=== PATIENT | male | born 1960 | race Caucasian/White ===

== ENCOUNTER 2020-09-05 05:35 | Day surgery (SDC) | payer BC ==
[2020-08-29 15:16] LABS: BASOPHILS # (AUTO) 0.1 X10'3 (0-0.2); BASOPHILS % (AUTO) 0.9 % (0-1); EOSINOPHILS # (AUTO) 0.2 X10'3 (0-0.9); EOSINOPHILS % (AUTO) 3.3 % (0-6); LYMPHOCYTES # (AUTO) 1.3 X10'3 (1.1-4.8); MEAN CORPUSCULAR HEMOGLOBIN 32.2 PG (27.0-31.0); MEAN CORPUSCULAR HGB CONC 34.7 g/dL (33.0-36.5); MEAN CORPUSCULAR VOLUME 92.8 FL (78-98); MONOCYTES # (AUTO) 0.6 X10'3 (0-0.9); MONOCYTES % (AUTO) 8.9 % (2-12); NEUTROPHILS # (AUTO) 4.7 X10'3 (1.8-7.7); NEUTROPHILS % (AUTO) 67.9 % (42-75); PRE OP HEMATOCRIT 38.6 % (42.0-52.0); PRE OP HEMOGLOBIN 13.4 g/dL (14.0-17.9); PRE OP PLATELET COUNT 204 X10'3 (140-440); RED BLOOD COUNT 4.16 X10'6 (4.70-6.10); RED CELL DISTRIBUTION WIDTH 13.2 % (11.5-14.5)
[2020-08-29 15:31] LABS: ALBUMIN 4.3 G/DL (3.4-5.0); ALBUMIN/GLOBULIN RATIO 1.1 (1.1-1.5); ALKALINE PHOSPHATASE 52 IU/L (46-116); BLOOD UREA NITROGEN 11 MG/DL (7-18); BUN/CREATININE RATIO 11.3 (5.4-32.0); CALCIUM 9.2 MG/DL (8.5-10.1); CHLORIDE 97 MMOL/L (99-107); CREATININE 0.97 MG/DL (0.60-1.10); PRE OP ALT 27 U/L (30-65); PRE OP ANION GAP 12 (8-16); PRE OP AST 23 U/L (10-37); PRE OP BILIRUB, TOTAL 0.7 MG/DL (0.0-1.0); PRE OP GLUCOSE 90 MG/DL (70-104); PRE OP POTASSIUM 3.8 MMOL/L (3.4-5.1); PRE OP SODIUM 135 MMOL/L (135-145); TOTAL CARBON DIOXIDE 26.2 MMOL/L (24-32); TOTAL PROTEIN 8.1 G/DL (6.4-8.2); eGFR 79 ML/MIN
[2020-09-04 05:40] VITALS: BP 124/83
[~2020-09-05] VITALS: Ht 172.7 cm; Wt 99.8 kg
[~2020-09-05 05:35] MED LIST: ASPI-611 PO; DOCUMENT DATE & TIME OF BETA-BLOCKER PO ONE; METO-539 PO; ceFAZolin 2gm in dextrose, iso 50 ML IV ONE; famotidine 20mg tablet PO ONE; ringers solution, lacted 1,000 ML IV SCH
[2020-09-05] MEDS ORDERED: BUPIVAcaine/PF 2.5mg/ml (0.25%) 10ml vial ONE (07:13)
[2020-09-05] MEDS ORDERED: fentaNYL/PF 50MCG/1 ML 2ML syringe ONE (07:18)
[2020-09-05] MEDS ORDERED: MIDAZolam 1 MG/ML 5ML VIAL ONE (07:18)
[2020-09-05] MEDS ORDERED: LIDOcaine 0.5% (5mg/ml) 50ml vial ONE (07:18)
[2020-09-05] MEDS ORDERED: ringers solution, lacted 1,000 ML IV SCH (07:25)
[2020-09-05] MEDS ORDERED: ondansetron/PF 4mg/2ml inj IV PRN (07:25)
[2020-09-05] MEDS ORDERED: meperidine/PF 25mg/ml syringe IV PRN ×3 (07:25)
[2020-09-05] MEDS ORDERED: proCHLORperazine 10 MG/2 ml inj IV PRN (07:25)
[2020-09-05] MEDS ORDERED: morphine 4 MG/ML inj SYRINge IV PRN (07:25)
[2020-09-05] MEDS ORDERED: morphine 2 MG/ML inj. syringe IV PRN (07:25)
[2020-09-05] MEDS ORDERED: propofol inj 20 ML IV ONE (07:58)
[2020-09-05 08:28] VITALS: BP 117/70
--- NOTE | 2020-09-05 08:28 | NUR ---
Received from OR via , accompanied by Anesthesiologist FR JOHNSON and report given by Anesthesiolgist. AWAKE AND BHARATI PAIN. VITALS STABLE. DRESSING DI. FINGERS WARM AND PINK.
[2020-09-05 08:38] VITALS: BP 115/72
[2020-09-05 08:48] VITALS: BP 121/73
[2020-09-05 08:58] VITALS: BP 118/70
--- NOTE | 2020-09-05 09:18 | NUR ---
AWAKE AND ORIENTED. VITALS STABLE. DRESSING DI. SENISE PAIN. HOME WITH HIS AT THIS TIME.
== END 2020-09-05 09:18 | disposition home or self-care (01) ==
LOC: PAS 05:35
PROVIDERS: ATTEND Orthopaedic Surgery Hand Surgery
DX: M72.0 Palmar fascial fibromatosis [Dupuytren] (principal); G56.02 Carpal tunnel syndrome, left upper limb; Z20.822 Contact with and (suspected) exposure to COVID-19; G47.30 Sleep apnea, unspecified; I48.91 Unspecified atrial fibrillation; Z91.013 Allergy to seafood; Z79.82 Long term (current) use of aspirin; Z79.899 Other long term (current) drug therapy; Z98.890 Other specified postprocedural states; Z72.89 Other problems related to lifestyle; Z87.891 Personal history of nicotine dependence
CPT/HCPCS: 26123; 26125; 36415; 64721; 80053; 82948; 85025; 93005; J2001; J2250; J2704; J3010; J3490; U0003; A4215; J7120

== ENCOUNTER 2023-07-05 11:42 | Day surgery (SDC) | payer BC ==
[2023-07-03 10:13] LABS: BASOPHILS # (AUTO) 0.1 X10'3 (0-0.2); BASOPHILS % (AUTO) 1.1 % (0-1); EOSINOPHILS # (AUTO) 0.7 X10'3 (0-0.9); EOSINOPHILS % (AUTO) 14.1 % (0-6); HEMATOCRIT 32.6 % (42.0-52.0); HEMOGLOBIN 11.1 g/dl (14.0-17.9); LYMPHOCYTES # (AUTO) 0.9 X10'3 (1.1-4.8); LYMPHOCYTES % (AUTO) 19.2 % (21-51); MEAN CORPUSCULAR HGB CONC 33.9 g/dL (33.0-36.5); MEAN CORPUSCULAR VOLUME 97.2 FL (78-98); MEAN PLATELET VOLUME 8.4 FL (7.4-10.4); MONOCYTES # (AUTO) 0.4 X10'3 (0-0.9); MONOCYTES % (AUTO) 7.9 % (2-12); NEUTROPHILS # (AUTO) 2.8 X10'3 (1.8-7.7); NEUTROPHILS % (AUTO) 57.7 % (42-75); PLATELET COUNT 153 X10'3 (140-440); RED BLOOD COUNT 3.35 X10'6 (4.70-6.10); RED CELL DISTRIBUTION WIDTH 13.1 % (11.5-14.5); WHITE BLOOD COUNT 4.9 X10'3 (4.5-11.0)
[2023-07-03 10:25] LABS: APTT 32 SECONDS (22-32); INR 1.1 INR; PROTHROMBIN TIME 11.5 SECONDS (9.0-12.0)
[2023-07-03 10:28] LABS: ALANINE AMINOTRANSFERASE 36 U/L (12-78); ALBUMIN 3.9 G/DL (3.4-5.0); ALBUMIN/GLOBULIN RATIO 1.3 (1.1-1.5); ALKALINE PHOSPHATASE 44 IU/L (46-116); ANION GAP 9 (8-16); ASPARTATE AMINO TRANSFERASE 38 U/L (10-37); BILIRUBIN,TOTAL 0.8 MG/DL (0.1-1.0); BLOOD UREA NITROGEN 12 MG/DL (7-18); BUN/CREATININE RATIO 13.6 (10.0-20.0); CALCIUM 9.1 MG/DL (8.5-10.1); CHLORIDE 104 MMOL/L (99-107); CHOL/HDL RATIO 2.9 (0.00-4.99); CHOLESTEROL 143 MG/DL (0-200); CREATININE 0.88 MG/DL (0.60-1.10); GLUCOSE 89 MG/DL (70-104); HDL CHOLESTEROL 49 MG/DL (35-60); LDL CHOLESTEROL 74 MG/DL (50-100); POTASSIUM 4.1 MMOL/L (3.5-5.1); SODIUM 140 MMOL/L (135-145); TOTAL CARBON DIOXIDE 26.8 MMOL/L (24-32); TRIGLYCERIDES 92 MG/DL (20-135); eGFR 87 ML/MIN
[2023-07-05] VITALS (9 sets, daily range): BP systolic 126–153; BP diastolic 74–84; PULSE 62–66; RESP 8–18; TEMP 97.5; O2SAT 94–100
[~2023-07-05] VITALS: Ht 172.7 cm; Wt 90.4 kg
[~2023-07-05 11:42] MED LIST changes: -DOCUMENT DATE & TIME OF BETA-BLOCKER PO ONE; -ceFAZolin 2gm in dextrose, iso 50 ML IV ONE; -famotidine 20mg tablet PO ONE; -ringers solution, lacted 1,000 ML IV SCH
[2023-07-05] MEDS ORDERED: SOTA80TA PO (12:18)
[2023-07-05] MEDS ORDERED: ROSU20TA73 PO (12:18)
[2023-07-05] MEDS ORDERED: CYAN50009 SL (12:18)
[2023-07-05] MEDS ORDERED: FERR-28 PO (12:18)
[2023-07-05] MEDS ORDERED: FURO20TA4 PO (12:18)
[2023-07-05] MEDS ORDERED: APIX5TAB3 PO (12:18)
[2023-07-05] MEDS ORDERED: POTA-188 PO (12:18)
[2023-07-05] MEDS: diphenhydrAMINE 25mg capsule PO PRN (12:37)
[2023-07-05] MEDS: LORazepam 0.5 MG tablet PO PRN (12:37)
[2023-07-05] MEDS: normal saline 1,000 ML IV SCH (12:38)
[2023-07-05] MEDS ORDERED: IMAT400T5 PO (12:59)
[2023-07-05] MEDS ORDERED: iohexol 350MG/ML 100ml bottle IV ONE (14:49)
[2023-07-05] MEDS ORDERED: fentaNYL/PF 50MCG/1 ML 2ML syringe ONE (14:49)
[2023-07-05] MEDS ORDERED: midazolam 1 mg/ML 2ml injection ONE (14:49)
[2023-07-05] MEDS ORDERED: heparin 1,000unit/ml 10ml vial 10 ML ONE (14:49)
[2023-07-05] MEDS ORDERED: verapamil 2.5 mg/ml inj IV ONE (14:49)
[2023-07-05] MEDS ORDERED: LIDOcaine 1% (10mg/ml) 2ml vial ONE (14:49)
[2023-07-05] MEDS ORDERED: nitroGLYCERIN 500mcg/5mL D5W 5 ML IV ONE (14:50)
[2023-07-05] MEDS ORDERED: iohexol 350 MG/ML 50ML vial IV ONE (15:22)
[2023-07-05] MEDS ORDERED: LIDOcaine 1% 30ml preserv. free vial ONE (15:34)
[2023-07-05] MEDS ORDERED: proCHLORperazine 10 MG/2 ml inj IV PRN (16:25)
[2023-07-05] MEDS ORDERED: ondansetron/PF 4mg/2ml inj IV PRN (16:25)
[2023-07-05] MEDS ORDERED: nitroGLYCERIN 0.4mg SUBLingual tab SL PRN (16:25)
[2023-07-08 06:45] LABS: ISTAT HGB MIX 9.9 g/dl (14.0-17.9); ISTAT Hct MIX 29 %PCV (42-52); ISTAT O2 SATURATION MIX VENOUS 67 % (60-80); ISTAT SOURCE VEN
[2023-08-12] MEDS ORDERED: FLO0.4C PO (13:15)
[2023-08-12] MEDS ORDERED: APIX5TAB3 PO (13:41)
[2023-08-13] MEDS ORDERED: FERR325T28 PO (13:11)
[2023-08-13] MEDS ORDERED: CYAN500T46 PO (13:11)
== END 2023-07-05 19:30 | disposition home or self-care (01) ==
LOC: SSTAY O 11:42
PROVIDERS: ATTEND Student in an Organized Health Care Education/Training Program
DX: I34.0 Nonrheumatic mitral (valve) insufficiency (principal); I42.8 Other cardiomyopathies; I48.91 Unspecified atrial fibrillation; E78.5 Hyperlipidemia, unspecified; K21.9 Gastro-esophageal reflux disease without esophagitis; G47.30 Sleep apnea, unspecified; Z79.01 Long term (current) use of anticoagulants; Z79.899 Other long term (current) drug therapy
CPT/HCPCS: 36415; 80053; 80061; 82803; 85014; 85025; 85610; 85730; 93005; 93458; 99152; 99153; J1644; J2250; J3010; J3490; J7030; Q0163; Q9967; A6258; A6402; C1751; C1760; C1769; C1894

== ENCOUNTER 2023-08-14 05:49 | Inpatient (IN) | payer BC ==
[2023-08-12 14:01] LABS: BILIRUBIN,URINE NEGATIVE (Neg); CLARITY,URINE CLEAR (Clear); COLOR,URINE YELLOW (Yellow); GLUCOSE, URINE NEGATIVE (Neg); KETONES,URINE NEGATIVE (Neg); LEUKOCYTE ESTERASE ,URINE NEGATIVE (Neg); NITRITES, URINE NEGATIVE (Neg); OCCULT BLOOD,URINE NEGATIVE (Neg); PROTEIN,URINE NEGATIVE (Neg)
[2023-08-12 14:32] LABS: UA COLLECTION TYPE CLN CATCH MIDSTREAM
[2023-08-12 14:48] LABS: ALBUMIN 4.1 G/DL (3.4-5.0); ALBUMIN/GLOBULIN RATIO 1.4 (1.1-1.5); ALKALINE PHOSPHATASE 40 IU/L (46-116); BLOOD UREA NITROGEN 10 MG/DL (7-18); BUN/CREATININE RATIO 11.5 (10.0-20.0); CALCIUM 8.5 MG/DL (8.5-10.1); CHLORIDE 105 MMOL/L (99-107); CREATININE 0.87 MG/DL (0.60-1.10); PRE OP ALT 27 U/L (30-65); PRE OP ANION GAP 12 (8-16); PRE OP AST 24 U/L (10-37); PRE OP BILIRUB, TOTAL 0.8 MG/DL (0.0-1.0); PRE OP GLUCOSE 98 MG/DL (70-104); PRE OP POTASSIUM 4.3 MMOL/L (3.4-5.1); PRE OP SODIUM 142 MMOL/L (135-145); TOTAL CARBON DIOXIDE 24.6 MMOL/L (24-32); TOTAL PROTEIN 7.1 G/DL (6.4-8.2); eCRCL 78 ML/MIN; eGFR 89 ML/MIN
[2023-08-12 15:07] LABS: HEMOGLOBIN A1C 5.5 % (4.5-6.2)
[2023-08-13 07:22] LABS: ABG BASE EXCESS -1.8 mmol/L (-2.0-2.0); ABG HCO3 21.1 mmol/L (22.0-26.0); ABG OXYGEN SATURATION 97.6 % (94-97); ABG PH (T) 7.465 (7.340-7.440); ABG PO2 (T) 106.1 mmHg (75.0-100.0); ALLEN'S TEST POSITIVE; FCOHb 0.3 % (0.0-3.9); FHHb 2.4 % (0.0-5.0); FMetHb 0.1 % (0.0-1.5); FO2Hb 97.2 % (94-97); MODE ROOM AIR; TOTAL HEMOGLOBIN 11.8 G/dl (14.0-17.9)
[2023-08-13 07:56] LABS: BASOPHILS # (AUTO) 0.1 X10'3 (0-0.2); BASOPHILS % (AUTO) 1.1 % (0-1); EOSINOPHILS # (AUTO) 0.5 X10'3 (0-0.9); EOSINOPHILS % (AUTO) 10.3 % (0-6); LYMPHOCYTES % (AUTO) 19.9 % (21-51); MEAN CORPUSCULAR HEMOGLOBIN 33.1 PG (27.0-31.0); MEAN CORPUSCULAR HGB CONC 34.9 g/dL (33.0-36.5); MEAN CORPUSCULAR VOLUME 94.8 FL (78-98); MEAN PLATELET VOLUME 9.4 FL (7.4-10.4); MONOCYTES # (AUTO) 0.3 X10'3 (0-0.9); MONOCYTES % (AUTO) 6.5 % (2-12); NEUTROPHILS % (AUTO) 62.2 % (42-75); PRE OP HEMOGLOBIN 11.2 g/dL (14.0-17.9); PRE OP PLATELET COUNT 142 X10'3 (140-440); PRE OP WHITE BLOOD COUNT 4.8 10'3 (4.8-10.8); RED BLOOD COUNT 3.38 X10'6 (4.70-6.10); RED CELL DISTRIBUTION WIDTH 13.6 % (11.5-14.5)
[~2023-08-14] VITALS: Ht 167.6 cm; Wt 99.4 kg
[2023-08-14] VITALS (26 sets, daily range): BP systolic 90–148; BP diastolic 46–92; PULSE 76–121; RESP 10–22; TEMP 98.5; O2SAT 96–100
[2023-08-14] MEDS: LORazepam 2 mg/ml vial IV ONE (05:30)
[2023-08-14] MEDS: Insulin Reg/NS 100units/100mL 100 ML IV SCH ×2 (05:30→12:25)
[2023-08-14] MEDS: cefazolin 2gm/D5W 100mL 100 ML IV ONE (05:30)
[2023-08-14] MEDS: DOCUMENT DATE & TIME OF BETA-BLOCKER PO ONE (05:30)
[~2023-08-14 05:49] MED LIST changes: +APIX5TAB3 PO; -ASPI-611 PO; +CYAN500T46 PO; +FERR325T28 PO; +FLO0.4C PO; +FURO20TA4 PO; +IMAT400T5 PO; -METO-539 PO; +POTA-188 PO; +ROSU20TA73 PO; +SOTA80TA PO; +albuterol 2.5 MG/3 ML nebule NEB PRN; +dextrose 50%-water 50ml dispensing syringe IV PRN
[2023-08-14] MEDS: famotidine 20mg tablet PO ONE (06:35)
[2023-08-14] MEDS: ringers solution, lacted 1,000 ML IV SCH (06:35)
[2023-08-14] MEDS: vancomycin 1,500 MG in NS 300ml IV soln IV ONE (06:39)
[2023-08-14] MEDS: metoprolol tartrate 12.5mg (1/2 tablet) PO ONE (06:46)
[2023-08-14] MEDS: mupirocin 2% nasal ointment 1gm UD NS ONE (06:46)
[2023-08-14 07:45] LABS: PRE OP INR 1.1 INR; PRE OP PROTIME 11.5 SECONDS (9.0-12.0)
[2023-08-14] MEDS ORDERED: MIDAZolam 1mg/ml 10ml vial ONE (07:45)
[2023-08-14] MEDS ORDERED: SUfentanil 50mcg/ml 1ml amp IV ONE (07:48)
[2023-08-14] MEDS ORDERED: LIDOcaine 2% (20 mg/ml) 5ml cardiac syringe ONE (08:00)
[2023-08-14] MEDS ORDERED: mannitol 12.5gm/50mL VIAL IV ONE (08:00)
[2023-08-14] MEDS ORDERED: sodium bicarbonate (8.4%) 1 mEq/ml syringe ONE (08:00)
[2023-08-14] MEDS ORDERED: heparin 10,000 units/1 ML INJ ONE (08:00)
[2023-08-14] MEDS ORDERED: NORepinephrine 1 mg/ml inj IV ONE (08:00)
[2023-08-14] MEDS ORDERED: potassium Cl 2 mEq/ml inj IV ONE (08:00)
[2023-08-14] MEDS ORDERED: calcium chloride 100 MG/1 ML inj IV ONE (08:00)
[2023-08-14] MEDS ORDERED: furosemide 40mg/4ml inj ONE (08:00)
[2023-08-14] MEDS ORDERED: aminocaproic acid 250 MG/1 ML inj. ONE ×2 (08:00→08:14)
[2023-08-14] MEDS ORDERED: heparin 1,000 units/ml 10ml inj ONE (08:00)
[2023-08-14] MEDS ORDERED: MAGNESIUM SULFATE 4 MEQ/ML (5gm/10ml) injection ONE (08:00)
[2023-08-14] MEDS ORDERED: albumin (human) 25% 100 ML IV solution IV ONE (08:00)
[2023-08-14] MEDS ORDERED: protamine sulf. 10mg/ml inj. IV ONE (08:14)
[2023-08-14] MEDS ORDERED: isoflurane 100ml inhalation liquid IH ONE (08:14)
[2023-08-14] MEDS ORDERED: albumin (Human) 5% 250ml BOTTLE IV ONE (08:14)
[2023-08-14] MEDS ORDERED: DOBUTamine/D5W 500mg/250ml premix IV ONE (08:14)
[2023-08-14] MEDS ORDERED: NORepinephrine 8 MG in NS 250 ML BAG (32 mcg/ml) IV ONE (08:14)
[2023-08-14] MEDS ORDERED: midazolam 100mg in NS 100ml 100 ML IV PRN (08:20)
[2023-08-14] MEDS: midazolam 1 mg/ML 2ml injection IV ONE (08:20)
[2023-08-14] MEDS ORDERED: fentaNYL/PF 50MCG/1 ML 2ML syringe IV PRN (08:20)
[2023-08-14] MEDS ORDERED: FENTANYL-0.9 % NACL/PF 100 ML IV PRN (08:20)
[2023-08-14 09:09] LABS: ABG BASE EXCESS -1.4 mmol/L (-2.0-2.0); ABG HCO3 22.6 mmol/L (22.0-26.0); ABG OXYGEN SATURATION 99.2 % (94-97); ABG PCO2 35.2 mmHg (35.0-48.0); ABG PH 7.426 (7.340-7.440); ABG PO2 464.1 mmHg (75.0-100.0); CL (ABG) 107 mmol/L (99-107); FCOHb 0.3 % (0.0-3.9); FHHb 0.8 % (0.0-5.0); FMetHb 0.3 % (0.0-1.5); FO2Hb 98.6 % (94-97); GLUCOSE (ABG) 115 mg/dl (70-104); IONIZED CA (ABG) 1.11 mmol/L (1.10-1.30); K (ABG) 3.4 mmol/L (3.5-5.1); TOTAL HEMOGLOBIN 10.3 G/dl (14.0-17.9)
[2023-08-14 09:30] LABS: ABG BASE EXCESS 0.5 mmol/L (-2.0-2.0); ABG HCO3 24.3 mmol/L (22.0-26.0); ABG OXYGEN SATURATION 99.4 % (94-97); ABG PCO2 35.5 mmHg (35.0-48.0); ABG PH 7.453 (7.340-7.440); ABG PO2 489.3 mmHg (75.0-100.0); CL (ABG) 102 mmol/L (99-107); FCOHb 0.3 % (0.0-3.9); FHHb 0.6 % (0.0-5.0); FMetHb 0.3 % (0.0-1.5); FO2Hb 98.8 % (94-97); GLUCOSE (ABG) 107 mg/dl (70-104); IONIZED CA (ABG) 1.03 mmol/L (1.10-1.30); K (ABG) 3.6 mmol/L (3.5-5.1); TOTAL HEMOGLOBIN 8.4 G/dl (14.0-17.9)
[2023-08-14] MEDS ORDERED: 0.9 % SODIUM CHLORIDE 10 ML VIAL ONE (09:39)
[2023-08-14] MEDS ORDERED: etomidate 2mg/ml inj. ONE (09:39)
[2023-08-14] MEDS ORDERED: LIDOcaine 2% (20mg/ml) 5ml vial ONE (09:39)
[2023-08-14] MEDS ORDERED: phenylephrine 10mg/ml inj. -priapism dosing ONE (09:39)
[2023-08-14] MEDS ORDERED: rocuronium 10mg/ml inj IV ONE ×3 (09:39→12:23)
[2023-08-14] MEDS ORDERED: propofol inj 20 ML IV ONE (09:39)
[2023-08-14 09:52] LABS: ABG BASE EXCESS VENOUS 0.1 mmol/L (-2.0 - 2.0); ABG HCO3 VENOUS 24.6 mmol/L (21.0-28.0); ABG OXYGEN SATURATION VENOUS 84.9 % (75 - 99 %); ABG PCO2 VENOUS 39.3 mmHg (41.0-54.0); ABG PH (VENOUS) 7.415 (7.310-7.450); ABG PO2 VENOUS 49.2 mmHg (25.0-35.0); CL (ABG) 103 mmol/L (99-107); FCOHb VENOUS 0.3 %; FMetHb VENOUS 0.3 % (0.0 - 0.5); FO2Hb VENOUS 84.4 %; GLUCOSE (ABG) 143 mg/dl (70-104); IONIZED CA (ABG) 1.09 mmol/L (1.10-1.30); K (ABG) 4.5 mmol/L (3.5-5.1); TOTAL HEMOGLOBIN 9.4 G/dl (14.0-17.9)
[2023-08-14 10:14] LABS: ABG BASE EXCESS -0.6 mmol/L (-2.0-2.0); ABG HCO3 25.4 mmol/L (22.0-26.0); ABG OXYGEN SATURATION 99.1 % (94-97); ABG PCO2 48.1 mmHg (35.0-48.0); ABG PO2 236.1 mmHg (75.0-100.0); CL (ABG) 103 mmol/L (99-107); FCOHb 0.3 % (0.0-3.9); FHHb 0.9 % (0.0-5.0); FMetHb 0.3 % (0.0-1.5); FO2Hb 98.5 % (94-97); GLUCOSE (ABG) 167 mg/dl (70-104); IONIZED CA (ABG) 1.13 mmol/L (1.10-1.30); K (ABG) 4.4 mmol/L (3.5-5.1); TOTAL HEMOGLOBIN 9.4 G/dl (14.0-17.9)
[2023-08-14 10:45] LABS: ABG BASE EXCESS -3.3 mmol/L (-2.0-2.0); ABG HCO3 21.6 mmol/L (22.0-26.0); ABG PCO2 37.7 mmHg (35.0-48.0); ABG PH 7.375 (7.340-7.440); ABG PO2 231.1 mmHg (75.0-100.0); CL (ABG) 103 mmol/L (99-107); FCOHb 0.3 % (0.0-3.9); FMetHb 0.3 % (0.0-1.5); FO2Hb 98.4 % (94-97); GLUCOSE (ABG) 154 mg/dl (70-104); IONIZED CA (ABG) 1.13 mmol/L (1.10-1.30); K (ABG) 4.4 mmol/L (3.5-5.1); TOTAL HEMOGLOBIN 9.2 G/dl (14.0-17.9)
[2023-08-14 11:21] LABS: ACTIVATED CLOTTING TIME 710 SEC (101-148)
[2023-08-14 11:21] LABS: ACTIVATED CLOTTING TIME 625 SEC (101-148)
[2023-08-14 11:21] LABS: ACTIVATED CLOTTING TIME 875 SEC (101-148)
[2023-08-14 11:28] LABS: ABG BASE EXCESS -1.7 mmol/L (-2.0-2.0); ABG HCO3 21.9 mmol/L (22.0-26.0); ABG OXYGEN SATURATION 99.4 % (94-97); ABG PCO2 32.2 mmHg (35.0-48.0); ABG PH 7.451 (7.340-7.440); CL (ABG) 105 mmol/L (99-107); FCOHb 0.3 % (0.0-3.9); FHHb 0.6 % (0.0-5.0); FMetHb 0.3 % (0.0-1.5); FO2Hb 98.8 % (94-97); GLUCOSE (ABG) 141 mg/dl (70-104); IONIZED CA (ABG) 1.17 mmol/L (1.10-1.30); TOTAL HEMOGLOBIN 7.9 G/dl (14.0-17.9)
[2023-08-14 11:30] LABS: ACTIVATED CLOTTING TIME 122 SEC (101-148)
[2023-08-14] MEDS ORDERED: esmolol inj. 10 ML IV ONE (12:23)
[2023-08-14] MEDS ORDERED: dexamethasone sod phosphate 4mg/ml inj. ONE (12:23)
[2023-08-14] MEDS ORDERED: ondansetron/PF 4mg/2ml inj ONE (12:23)
[2023-08-14] MEDS ORDERED: acetaminophen 325mg tablet PO PRN (12:25)
[2023-08-14] MEDS ORDERED: bisacodyl 10mg suppository rectal RC PRN (12:25)
[2023-08-14] MEDS ORDERED: Neutra Phos packet PO PRN (12:25)
[2023-08-14] MEDS ORDERED: mineral oil 133ml enema RC PRN (12:25)
[2023-08-14] MEDS ORDERED: nitroGLYCERIN-Tridil 50MG/D5W 250 ML IV PRN (12:25)
[2023-08-14] MEDS ORDERED: magnesium hydroxide 30ml (MOM) UD suspension PO PRN (12:25)
[2023-08-14] MEDS ORDERED: ondansetron/PF 4mg/2ml inj IV PRN (12:25)
[2023-08-14] MEDS ORDERED: insulin glargine (Lantus) pen - multi-dose SQ PRN (12:25)
[2023-08-14] MEDS ORDERED: potassium Cl 40MEQ/1/2NS 520ml 520 ML IV PRN (12:25)
[2023-08-14] MEDS ORDERED: DOBUTamine-DoBUTrex 500mg/D5W 250 ML IV PRN (12:25)
[2023-08-14] MEDS ORDERED: dextrose 50%-water 50ml dispensing syringe IV PRN (12:25)
[2023-08-14] MEDS ORDERED: niCARDipine-NS 40mg/200ml IVPB 200 ML IV PRN (12:25)
[2023-08-14] MEDS ORDERED: normal saline 250ml IV soln 250 ML IV PRN (12:25)
[2023-08-14] MEDS ORDERED: potassium CL 10mEq/100ml bag 100 ML IV PRN (12:25)
[2023-08-14] MEDS: ceFAZolin 1000mg inj ONE (12:39)
[2023-08-14] MEDS: epiNEPHrine 1 mg/ml inj ONE (12:40)
[2023-08-14] MEDS: vancomycin 1,000mg inj ONE (12:40)
[2023-08-14 12:45] LABS: ABG BASE EXCESS -4.2 mmol/L (-2.0-2.0); ABG HCO3 20.3 mmol/L (22.0-26.0); ABG OXYGEN SATURATION 99.5 % (94-97); ABG PCO2 (T) 34.8 mmHg (35.0-48.0); ABG PH (T) 7.384 (7.340-7.440); ABG PO2 (T) 402.2 mmHg (75.0-100.0); FCOHb 0.3 % (0.0-3.9); FHHb 0.5 % (0.0-5.0); FMetHb 0.3 % (0.0-1.5); FO2Hb 98.9 % (94-97); MODE VENT - SIMV; PATIENT TEMPERATURE 36.8; PEEP 5 cm H2O; RESPIRATORY RATE 12 b/min; TIDAL VOLUME 600 mL; TOTAL HEMOGLOBIN 10.8 G/dl (14.0-17.9)
[2023-08-14 12:56] LABS: BASOPHILS % (AUTO) 0.4 % (0-1); EOSINOPHILS # (AUTO) 0.2 X10'3 (0-0.9); EOSINOPHILS % (AUTO) 1.7 % (0-6); HEMATOCRIT 29.5 % (42.0-52.0); HEMOGLOBIN 10.1 g/dl (14.0-17.9); LYMPHOCYTES # (AUTO) 0.7 X10'3 (1.1-4.8); LYMPHOCYTES % (AUTO) 7.4 % (21-51); MEAN CORPUSCULAR HEMOGLOBIN 32.5 PG (27.0-31.0); MEAN CORPUSCULAR HGB CONC 34.2 g/dL (33.0-36.5); MEAN CORPUSCULAR VOLUME 95.1 FL (78-98); MEAN PLATELET VOLUME 7.9 FL (7.4-10.4); MONOCYTES # (AUTO) 0.4 X10'3 (0-0.9); MONOCYTES % (AUTO) 4.2 % (2-12); NEUTROPHILS # (AUTO) 8.6 X10'3 (1.8-7.7); NEUTROPHILS % (AUTO) 86.3 % (42-75); PLATELET COUNT 110 X10'3 (140-440); RED CELL DISTRIBUTION WIDTH 14.1 % (11.5-14.5); WHITE BLOOD COUNT 9.9 X10'3 (4.5-11.0)
[2023-08-14 13:15] LABS: ALANINE AMINOTRANSFERASE 19 U/L (12-78); ALBUMIN 3.4 G/DL (3.4-5.0); ALBUMIN/GLOBULIN RATIO 2.3 (1.1-1.5); ALKALINE PHOSPHATASE 22 IU/L (46-116); BLOOD UREA NITROGEN 10 MG/DL (7-18); BUN/CREATININE RATIO 10.5 (10.0-20.0); CALCIUM 7.5 MG/DL (8.5-10.1); CREATININE 0.95 MG/DL (0.60-1.10); GLUCOSE 121 MG/DL (70-104); MAGNESIUM 2.5 MG/DL (1.5-2.4); SODIUM 145 MMOL/L (135-145); TOTAL CARBON DIOXIDE 22.1 MMOL/L (24-32); TOTAL PROTEIN 4.9 G/DL (6.4-8.2); eCRCL 72 ML/MIN; eGFR 80 ML/MIN
[2023-08-14 13:20] LABS: ANION GAP 11 (8-16); ASPARTATE AMINO TRANSFERASE 53 U/L (10-37); CHLORIDE 112 MMOL/L (99-107); POTASSIUM 3.1 MMOL/L (3.5-5.1)
[2023-08-14 13:26] LABS: PHOSPHORUS 1.2 MG/DL (2.3-4.5)
[2023-08-14] MEDS: albumin (Human) 5% 250ml 250 ML IV ONE (13:26)
[2023-08-14] MEDS: gabapentin 300mg capsule PO SCH (13:26)
[2023-08-14] MEDS: sodium chloride 0.45% 1,000 ML IV SCH (13:27)
[2023-08-14] MEDS: NORepinephrine 8mg/ 250ml NS 250 ML IV PRN (13:37)
[2023-08-14] MEDS: albumin (Human) 5% 250ml 250 ML IV PRN (13:44)
[2023-08-14 13:45] LABS: INR 1.5 INR; PROTHROMBIN TIME 15.6 SECONDS (9.0-12.0)
[2023-08-14 14:00] LABS: PRE OP PARTIAL THROMB. TIME 39 SECONDS (22-32)
[2023-08-14] MEDS: potassium Cl 20mEq/100mL bag 100 ML IV PRN (14:09)
[2023-08-14] MEDS: sodium phosphate inj. 30 MMOL in dextrose 5%-water 250 ML IV PRN (15:05)
[2023-08-14] MEDS: ceFAZolin/D5W- 1GM premix 50 ML IV SCH (15:54)
[2023-08-14 19:20] LABS: ABG BASE EXCESS -4.5 mmol/L (-2.0-2.0); ABG HCO3 18.3 mmol/L (22.0-26.0); ABG OXYGEN SATURATION 98.9 % (94-97); ABG PCO2 (T) 25.7 mmHg (35.0-48.0); FCOHb 0.4 % (0.0-3.9); FHHb 1.1 % (0.0-5.0); FMetHb 0.3 % (0.0-1.5); FO2Hb 98.2 % (94-97); MODE SPONT; PATIENT TEMPERATURE 37.1; PEEP 5 cm H2O; TOTAL HEMOGLOBIN 8.1 G/dl (14.0-17.9)
[2023-08-14] MEDS: acetaminophen 325mg tablet PO PRN (20:15)
[2023-08-14] MEDS: sennosides/docusate sodium tablet PO SCH (20:15)
[2023-08-14] MEDS: atorvastatin 10mg tablet PO SCH (20:16)
[2023-08-14] MEDS: mupirocin 2% nasal ointment 1gm UD NS SCH (20:16)
[2023-08-14] MEDS: vancomycin/NS 1 GM ADD-VANTAGE 250 ML IV SCH (20:16)
[2023-08-14 21:21] LABS: EOSINOPHILS % (AUTO) 0.1 % (0-6); LYMPHOCYTES # (AUTO) 0.3 X10'3 (1.1-4.8); MONOCYTES # (AUTO) 0.3 X10'3 (0-0.9)
[2023-08-14 21:23] LABS: BASOPHILS % (AUTO) 0 % (0-1); LYMPHOCYTES % (AUTO) 4.8 % (21-51); MEAN CORPUSCULAR HEMOGLOBIN 32.4 PG (27.0-31.0); MEAN CORPUSCULAR HGB CONC 34.4 g/dL (33.0-36.5); MEAN CORPUSCULAR VOLUME 94.3 FL (78-98); MEAN PLATELET VOLUME 8.3 FL (7.4-10.4); MONOCYTES % (AUTO) 4.4 % (2-12); NEUTROPHILS # (AUTO) 6.5 X10'3 (1.8-7.7); NEUTROPHILS % (AUTO) 90.7 % (42-75); PLATELET COUNT 73 X10'3 (140-440); RED CELL DISTRIBUTION WIDTH 14.4 % (11.5-14.5); WHITE BLOOD COUNT 7.2 X10'3 (4.5-11.0)
[2023-08-14 21:29] LABS: HEMATOCRIT 21.7 % (42.0-52.0); HEMOGLOBIN 7.4 g/dl (14.0-17.9)
[2023-08-14 21:30] LABS: ALBUMIN 3.9 G/DL (3.4-5.0); ANION GAP 12 (8-16); BLOOD UREA NITROGEN 15 MG/DL (7-18); CALCIUM 7.7 MG/DL (8.5-10.1); CHLORIDE 112 MMOL/L (99-107); CREATININE 1.07 MG/DL (0.60-1.10); GLUCOSE 121 MG/DL (70-104); MAGNESIUM 2.2 MG/DL (1.5-2.4); PHOSPHORUS 3.4 MG/DL (2.3-4.5); POTASSIUM 4.1 MMOL/L (3.5-5.1); SODIUM 145 MMOL/L (135-145); TOTAL CARBON DIOXIDE 20.9 MMOL/L (24-32); eCRCL 64 ML/MIN; eGFR 70 ML/MIN
[2023-08-14] MEDS: morphine 2 MG/ML inj. syringe IV PRN (23:57)
[2023-08-15] VITALS (27 sets, daily range): BP systolic 88–133; BP diastolic 42–85; PULSE 9–102; RESP 12–26; TEMP 98.7–99.2; O2SAT 93–100
[2023-08-15] MEDS: magnesium 2GM in 50ml NS 50 ML IV PRN (02:03)
[2023-08-15] MEDS: HYDROcodone/acetaminophen 10/325mg tab PO PRN ×2 (03:29→14:44)
[2023-08-15] MEDS: morphine 4 MG/ML inj SYRINge IV PRN (04:08)
[2023-08-15 04:23] LABS: EOSINOPHILS % (AUTO) 0 % (0-6); MONOCYTES # (AUTO) 0.4 X10'3 (0-0.9); NEUTROPHILS # (AUTO) 9.6 X10'3 (1.8-7.7)
[2023-08-15 04:25] LABS: BASOPHILS % (AUTO) 0.2 % (0-1); LYMPHOCYTES # (AUTO) 0.4 X10'3 (1.1-4.8); LYMPHOCYTES % (AUTO) 4.1 % (21-51); MEAN CORPUSCULAR HEMOGLOBIN 32.8 PG (27.0-31.0); MEAN CORPUSCULAR HGB CONC 34.7 g/dL (33.0-36.5); MEAN CORPUSCULAR VOLUME 94.6 FL (78-98); MEAN PLATELET VOLUME 8.7 FL (7.4-10.4); MONOCYTES % (AUTO) 4.2 % (2-12); NEUTROPHILS % (AUTO) 91.5 % (42-75); PLATELET COUNT 71 X10'3 (140-440); RED BLOOD COUNT 2.13 X10'6 (4.70-6.10); RED CELL DISTRIBUTION WIDTH 14.3 % (11.5-14.5); WHITE BLOOD COUNT 10.5 X10'3 (4.5-11.0)
[2023-08-15 04:31] LABS: HEMATOCRIT 20.2 % (42.0-52.0)
[2023-08-15 04:38] LABS: APTT 29 SECONDS (22-32); INR 1.2 INR; PROTHROMBIN TIME 12.5 SECONDS (9.0-12.0)
[2023-08-15 04:43] LABS: ALANINE AMINOTRANSFERASE 28 U/L (12-78); ALBUMIN 3.9 G/DL (3.4-5.0); ALBUMIN/GLOBULIN RATIO 2.6 (1.1-1.5); ALKALINE PHOSPHATASE 20 IU/L (46-116); ANION GAP 14 (8-16); ASPARTATE AMINO TRANSFERASE 77 U/L (10-37); BILIRUBIN,TOTAL 2.9 MG/DL (0.1-1.0); BLOOD UREA NITROGEN 15 MG/DL (7-18); CALCIUM 8.1 MG/DL (8.5-10.1); CHLORIDE 112 MMOL/L (99-107); GLUCOSE 163 MG/DL (70-104); MAGNESIUM 2.4 MG/DL (1.5-2.4); PHOSPHORUS 3.7 MG/DL (2.3-4.5); POTASSIUM 4.8 MMOL/L (3.5-5.1); SODIUM 145 MMOL/L (135-145); TOTAL CARBON DIOXIDE 19.1 MMOL/L (24-32); TOTAL PROTEIN 5.4 G/DL (6.4-8.2); eCRCL 68 ML/MIN; eGFR 75 ML/MIN
[2023-08-15] MEDS ORDERED: IMATINIB MESYLATE 400 MG PO SCH (08:00)
[2023-08-15] MEDS: tamsulosin 0.4mg capsule PO SCH (09:27)
[2023-08-15] MEDS: aspirin 81mg tab.chew PO SCH (09:27)
[2023-08-15] MEDS: metoprolol tartrate 12.5mg (1/2 tablet) PO SCH (09:27)
[2023-08-15] MEDS ORDERED: DEXTROSE 15 GM of carb/4 tabs (each vial/BOTTLE has 4 tablets) PO PRN ×2 (12:40)
[2023-08-15] MEDS ORDERED: glucagon, human recombinant 1mg kit SUBCUT PRN (12:40)
[2023-08-15] MEDS: MESSAGE TO PHARMACY PO ONE (12:40)
[2023-08-15] MEDS ORDERED: dextrose 50%-water 50ml dispensing syringe IV PRN ×2 (12:40)
[2023-08-15 13:07] LABS: HEMOGLOBIN 7.4 g/dl (14.0-17.9); MEAN CORPUSCULAR HEMOGLOBIN 31.2 PG (27.0-31.0); MEAN CORPUSCULAR HGB CONC 33.7 g/dL (33.0-36.5); MEAN CORPUSCULAR VOLUME 92.8 FL (78-98); MEAN PLATELET VOLUME 9.1 FL (7.4-10.4); PLATELET COUNT 66 X10'3 (140-440); RED BLOOD COUNT 2.37 X10'6 (4.70-6.10); RED CELL DISTRIBUTION WIDTH 16.6 % (11.5-14.5)
[2023-08-15 13:15] LABS: ALBUMIN 3.7 G/DL (3.4-5.0); ANION GAP 11 (8-16); BLOOD UREA NITROGEN 17 MG/DL (7-18); BUN/CREATININE RATIO 15.7 (10.0-20.0); CALCIUM 7.7 MG/DL (8.5-10.1); CHLORIDE 106 MMOL/L (99-107); CREATININE 1.08 MG/DL (0.60-1.10); GLUCOSE 233 MG/DL (70-104); POTASSIUM 4.4 MMOL/L (3.5-5.1); SODIUM 139 MMOL/L (135-145); TOTAL CARBON DIOXIDE 22.4 MMOL/L (24-32); eCRCL 63 ML/MIN; eGFR 69 ML/MIN
[2023-08-15] MEDS: insulin Lispro (HumaLOG) vial - multi-dose SQ SCH (13:21)
[2023-08-15] MEDS: mineral oil/petrolatum ophthal oint EACHEYE SCH (14:00)
[2023-08-15] MEDS: potassium Cl 20 mEq SR tablet PO PRN (14:46)
[2023-08-15] MEDS: insulin glargine (Lantus) pen - multi-dose SQ SCH (21:00)
[2023-08-16] VITALS (29 sets, daily range): BP systolic 97–127; BP diastolic 56–71; PULSE 78–110; RESP 9–25; TEMP 99–99.9; O2SAT 93–98
[2023-08-16 02:49] LABS: BASOPHILS % (AUTO) 0.1 % (0-1); EOSINOPHILS % (AUTO) 0 % (0-6); LYMPHOCYTES # (AUTO) 0.8 X10'3 (1.1-4.8); LYMPHOCYTES % (AUTO) 5.7 % (21-51); MEAN CORPUSCULAR HEMOGLOBIN 31.2 PG (27.0-31.0); MEAN CORPUSCULAR HGB CONC 33.7 g/dL (33.0-36.5); MEAN CORPUSCULAR VOLUME 92.5 FL (78-98); MEAN PLATELET VOLUME 9.1 FL (7.4-10.4); MONOCYTES # (AUTO) 1.3 X10'3 (0-0.9); MONOCYTES % (AUTO) 9.3 % (2-12); NEUTROPHILS % (AUTO) 84.9 % (42-75); PLATELET COUNT 72 X10'3 (140-440); RED BLOOD COUNT 2.23 X10'6 (4.70-6.10); RED CELL DISTRIBUTION WIDTH 16.5 % (11.5-14.5); WHITE BLOOD COUNT 14.1 X10'3 (4.5-11.0)
[2023-08-16 02:56] LABS: ALBUMIN 3.6 G/DL (3.4-5.0); ANION GAP 9 (8-16); BLOOD UREA NITROGEN 16 MG/DL (7-18); CALCIUM 8.1 MG/DL (8.5-10.1); CHLORIDE 106 MMOL/L (99-107); GLUCOSE 163 MG/DL (70-104); MAGNESIUM 2.5 MG/DL (1.5-2.4); POTASSIUM 4.7 MMOL/L (3.5-5.1); SODIUM 138 MMOL/L (135-145); TOTAL CARBON DIOXIDE 22.8 MMOL/L (24-32); eCRCL 68 ML/MIN; eGFR 75 ML/MIN
[2023-08-16 03:04] LABS: HEMATOCRIT 20.6 % (42.0-52.0)
[2023-08-16] MEDS: sodium phosphate inj. 15 MMOL in dextrose 5%-water 250 ML IV PRN (05:26)
[2023-08-16] MEDS: pantoprazole 40mg Tablet.DR PO SCH (07:59)
[2023-08-17] VITALS (25 sets, daily range): BP systolic 89–122; BP diastolic 50–73; PULSE 71–117; RESP 12–24; O2SAT 92–99
[2023-08-17 02:27] LABS: ALBUMIN 3.3 G/DL (3.4-5.0); ANION GAP 6 (8-16); BASOPHILS % (AUTO) 0.1 % (0-1); BLOOD UREA NITROGEN 18 MG/DL (7-18); BUN/CREATININE RATIO 20.2 (10.0-20.0); CALCIUM 7.9 MG/DL (8.5-10.1); CHLORIDE 103 MMOL/L (99-107); CREATININE 0.89 MG/DL (0.60-1.10); GLUCOSE 119 MG/DL (70-104); MAGNESIUM 1.8 MG/DL (1.5-2.4); MEAN CORPUSCULAR HEMOGLOBIN 31.4 PG (27.0-31.0); MEAN PLATELET VOLUME 8.9 FL (7.4-10.4); PHOSPHORUS 2.2 MG/DL (2.3-4.5); POTASSIUM 4.2 MMOL/L (3.5-5.1); SODIUM 137 MMOL/L (135-145); TOTAL CARBON DIOXIDE 27.7 MMOL/L (24-32); eCRCL 77 ML/MIN; eGFR 86 ML/MIN
[2023-08-17 02:29] LABS: EOSINOPHILS % (AUTO) 0.2 % (0-6); HEMOGLOBIN 7.4 g/dl (14.0-17.9); MEAN CORPUSCULAR HGB CONC 34.2 g/dL (33.0-36.5); MEAN CORPUSCULAR VOLUME 91.9 FL (78-98); MONOCYTES % (AUTO) 9.6 % (2-12); NEUTROPHILS # (AUTO) 8.4 X10'3 (1.8-7.7); NEUTROPHILS % (AUTO) 80.1 % (42-75); PLATELET COUNT 72 X10'3 (140-440); RED BLOOD COUNT 2.34 X10'6 (4.70-6.10); RED CELL DISTRIBUTION WIDTH 16.5 % (11.5-14.5); WHITE BLOOD COUNT 10.5 X10'3 (4.5-11.0)
[2023-08-17 03:00] LABS: HEMATOCRIT 21.5 % (42.0-52.0)
[2023-08-17] MEDS: metoprolol tartrate 25mg tablet PO SCH (08:55)
[2023-08-17] MEDS: folic acid/vitamin B complex w/vitamin C 0.8mg tablet PO SCH (10:03)
[2023-08-17] MEDS: metoclopramide 5 mg/ml inj IV PRN (10:03)
[2023-08-17] MEDS: metoprolol tartrate 12.5mg (1/2 tablet) PO ONE (10:05)
[2023-08-17] MEDS: furosemide 40mg tablet PO SCH (10:05)
[2023-08-17] MEDS: magnesium 4gm in 100ml NS 100 ML IV PRN (10:08)
[2023-08-17] MEDS: lactobacillus rhamnosus 10,000 MMU CELLS/CAPSULE PO SCH (14:37)
[2023-08-17] MEDS: potassium Cl 20 mEq SR tablet PO SCH (17:30)
[2023-08-17] MEDS: FERROUS SULFATE 142 MG TABLET.ER (45mg elemental) PO SCH (19:11)
[2023-08-17] MEDS: enoxaparin 30mg/0.3ml syringe SUBCUT SCH (19:14)
[2023-08-17] MEDS: amiodarone 150mg/dext, iso-os 100 ML IV ONE ×2 (22:13→22:17)
[2023-08-17] MEDS: amiodarone/D5 360MG/200ML BAG 200 ML IV SCH (22:13)
[2023-08-18] VITALS (27 sets, daily range): BP systolic 83–120; BP diastolic 50–75; PULSE 65–110; RESP 15–25; O2SAT 92–99
[2023-08-18 00:32] LABS: BASOPHILS % (AUTO) 0.1 % (0-1); EOSINOPHILS # (AUTO) 0.1 X10'3 (0-0.9); EOSINOPHILS % (AUTO) 0.6 % (0-6); HEMATOCRIT 22.5 % (42.0-52.0); HEMOGLOBIN 7.6 g/dl (14.0-17.9); MEAN CORPUSCULAR HEMOGLOBIN 31.1 PG (27.0-31.0); MEAN CORPUSCULAR HGB CONC 33.9 g/dL (33.0-36.5); MEAN CORPUSCULAR VOLUME 91.8 FL (78-98); MEAN PLATELET VOLUME 8.6 FL (7.4-10.4); MONOCYTES # (AUTO) 0.9 X10'3 (0-0.9); MONOCYTES % (AUTO) 10.8 % (2-12); NEUTROPHILS # (AUTO) 6.4 X10'3 (1.8-7.7); NEUTROPHILS % (AUTO) 76.5 % (42-75); PLATELET COUNT 80 X10'3 (140-440); RED BLOOD COUNT 2.45 X10'6 (4.70-6.10); RED CELL DISTRIBUTION WIDTH 16.3 % (11.5-14.5); WHITE BLOOD COUNT 8.4 X10'3 (4.5-11.0)
[2023-08-18 01:00] LABS: ALBUMIN 3.1 G/DL (3.4-5.0); ANION GAP 6 (8-16); BLOOD UREA NITROGEN 17 MG/DL (7-18); BUN/CREATININE RATIO 22.1 (10.0-20.0); CALCIUM 7.6 MG/DL (8.5-10.1); CHLORIDE 100 MMOL/L (99-107); CREATININE 0.77 MG/DL (0.60-1.10); GLUCOSE 123 MG/DL (70-104); MAGNESIUM 1.8 MG/DL (1.5-2.4); PHOSPHORUS 2.9 MG/DL (2.3-4.5); POTASSIUM 3.9 MMOL/L (3.5-5.1); SODIUM 135 MMOL/L (135-145); eCRCL 89 ML/MIN; eGFR > 90 ML/MIN
[2023-08-18] MEDS ORDERED: WATER IV SCH (09:00)
[2023-08-18] MEDS ORDERED: ARGATROBAN IV SCH (09:00)
[2023-08-18] MEDS ORDERED: DEXTROSE 5% IV SCH (09:00)
[2023-08-18] MEDS: sotalol 80mg tablet PO ONE (09:23)
[2023-08-18] MEDS: argatroban in NS 50mg/50ml 50 ML IV SCH (10:15)
[2023-08-18 10:50] LABS: APTT 27 SECONDS (22-32)
[2023-08-18 16:40] LABS: MAGNESIUM 2.2 MG/DL (1.5-2.4)
[2023-08-18] MEDS: sotalol 80mg tablet PO SCH (19:20)
[2023-08-18 20:05] LABS: MAGNESIUM 2.5 MG/DL (1.5-2.4); POTASSIUM 3.9 MMOL/L (3.5-5.1)
[2023-08-19] VITALS (29 sets, daily range): BP systolic 78–136; BP diastolic 54–98; PULSE 63–128; RESP 10–24; TEMP 98.6–99; O2SAT 94–98
[2023-08-19 02:53] LABS: BASOPHILS % (AUTO) 0.3 % (0-1); EOSINOPHILS # (AUTO) 0.2 X10'3 (0-0.9); EOSINOPHILS % (AUTO) 2.2 % (0-6); LYMPHOCYTES % (AUTO) 12.2 % (21-51); MEAN CORPUSCULAR HEMOGLOBIN 31.8 PG (27.0-31.0); MEAN CORPUSCULAR HGB CONC 34.3 g/dL (33.0-36.5); MEAN CORPUSCULAR VOLUME 92.6 FL (78-98); MEAN PLATELET VOLUME 8.4 FL (7.4-10.4); MONOCYTES # (AUTO) 0.9 X10'3 (0-0.9); MONOCYTES % (AUTO) 11.7 % (2-12); NEUTROPHILS # (AUTO) 5.9 X10'3 (1.8-7.7); NEUTROPHILS % (AUTO) 73.6 % (42-75); PLATELET COUNT 100 X10'3 (140-440); RED BLOOD COUNT 2.05 X10'6 (4.70-6.10); RED CELL DISTRIBUTION WIDTH 15.6 % (11.5-14.5); WHITE BLOOD COUNT 8.1 X10'3 (4.5-11.0)
[2023-08-19 03:07] LABS: HEMATOCRIT 18.9 % (42.0-52.0); HEMOGLOBIN 6.5 g/dl (14.0-17.9)
[2023-08-19 03:17] LABS: ALANINE AMINOTRANSFERASE 17 U/L (12-78); ALBUMIN 3.2 G/DL (3.4-5.0); ALBUMIN/GLOBULIN RATIO 1.3 (1.1-1.5); ALKALINE PHOSPHATASE 36 IU/L (46-116); ANION GAP 8 (8-16); ASPARTATE AMINO TRANSFERASE 21 U/L (10-37); BILIRUBIN,TOTAL 2.3 MG/DL (0.1-1.0); BLOOD UREA NITROGEN 15 MG/DL (7-18); BUN/CREATININE RATIO 17.6 (10.0-20.0); CHLORIDE 101 MMOL/L (99-107); CREATININE 0.85 MG/DL (0.60-1.10); GLUCOSE 114 MG/DL (70-104); POTASSIUM 4.4 MMOL/L (3.5-5.1); SODIUM 135 MMOL/L (135-145); TOTAL CARBON DIOXIDE 26.4 MMOL/L (24-32); TOTAL PROTEIN 5.6 G/DL (6.4-8.2); eCRCL 80 ML/MIN; eGFR > 90 ML/MIN
[2023-08-19 03:37] LABS: MAGNESIUM 2.3 MG/DL (1.5-2.4); PHOSPHORUS 3.4 MG/DL (2.3-4.5)
[2023-08-19 03:51] LABS: PLATELET ESTIMATE DECREASED; TOTAL CELLS COUNTED 100
[2023-08-19 03:58] LABS: POIKILOCYTOSIS FEW
[2023-08-19 03:59] LABS: ELLIPTOCYTES FEW
[2023-08-19] MEDS: furosemide 20 MG/2 ML vial IV ONE (08:59)
[2023-08-19] MEDS: simethicone 80mg chew tab PO PRN (10:03)
[2023-08-19] MEDS: amiodarone 200mg tablet PO SCH (10:06)
[2023-08-19 10:11] LABS: INR 2.1 INR; PROTHROMBIN TIME 21.4 SECONDS (9.0-12.0)
[2023-08-19 10:24] LABS: ALANINE AMINOTRANSFERASE 21 U/L (12-78); ALBUMIN 3.5 G/DL (3.4-5.0); ALBUMIN/GLOBULIN RATIO 1.3 (1.1-1.5); ALKALINE PHOSPHATASE 38 IU/L (46-116); ASPARTATE AMINO TRANSFERASE 24 U/L (10-37); BILIRUBIN,DIRECT 1.1 MG/DL (0-0.3); BILIRUBIN,TOTAL 3.2 MG/DL (0.1-1.0); FREE T4 (FREE THYROXINE) 1.08 NG/DL (0.73-1.40); THYROID STIMULATING HORMONE 2.66 ulU/ml (0.34-4.50); TOTAL PROTEIN 6.1 G/DL (6.4-8.2)
[2023-08-19 12:02] LABS: HEMATOCRIT 24.3 % (42.0-52.0); HEMOGLOBIN 8.3 g/dl (14.0-17.9); MEAN CORPUSCULAR HEMOGLOBIN 31.3 PG (27.0-31.0); MEAN CORPUSCULAR VOLUME 91.9 FL (78-98); MEAN PLATELET VOLUME 8.7 FL (7.4-10.4); PLATELET COUNT 128 X10'3 (140-440); RED BLOOD COUNT 2.64 X10'6 (4.70-6.10); RED CELL DISTRIBUTION WIDTH 15.7 % (11.5-14.5); WHITE BLOOD COUNT 9.9 X10'3 (4.5-11.0)
[2023-08-19 12:24] LABS: APTT 51 SECONDS (22-32)
[2023-08-19] MEDS: lactose-reduced food (Ensure Enlive) - 237ml bottle PO SCH (13:00)
[2023-08-19 13:06] LABS: MAGNESIUM 2.2 MG/DL (1.5-2.4); POTASSIUM 4.2 MMOL/L (3.5-5.1)
[2023-08-19] MEDS: diltiazem-NS 100mg/100ml 100 ML IV SCH (13:09)
[2023-08-19] MEDS: potassium Cl 40MEQ/270ML bag 250 ML IV PRN (14:54)
[2023-08-19] MEDS: tamsulosin 0.4mg capsule PO SCH (19:02)
[2023-08-19] MEDS ORDERED: warfarin 5mg tablet PO ONE (21:00)
[2023-08-19] MEDS: albumin (Human) 5% 250ml 250 ML IV ONE (23:25)
[2023-08-20] VITALS (24 sets, daily range): BP systolic 82–124; BP diastolic 56–73; PULSE 76–115; RESP 10–19; TEMP 97–98; O2SAT 93–98
[2023-08-20] MEDS: digoxin 250mcg/ml 2ml ampule IV ONE (01:02)
[2023-08-20 02:35] LABS: BASOPHILS % (AUTO) 0.6 % (0-1); EOSINOPHILS # (AUTO) 0.2 X10'3 (0-0.9); EOSINOPHILS % (AUTO) 2.1 % (0-6); HEMATOCRIT 24.7 % (42.0-52.0); HEMOGLOBIN 8.4 g/dl (14.0-17.9); LYMPHOCYTES # (AUTO) 1.1 X10'3 (1.1-4.8); LYMPHOCYTES % (AUTO) 12.1 % (21-51); MEAN CORPUSCULAR HEMOGLOBIN 30.8 PG (27.0-31.0); MEAN CORPUSCULAR HGB CONC 33.9 g/dL (33.0-36.5); MEAN CORPUSCULAR VOLUME 91.1 FL (78-98); MEAN PLATELET VOLUME 8.1 FL (7.4-10.4); MONOCYTES # (AUTO) 1.3 X10'3 (0-0.9); MONOCYTES % (AUTO) 14.5 % (2-12); NEUTROPHILS # (AUTO) 6.2 X10'3 (1.8-7.7); NEUTROPHILS % (AUTO) 70.7 % (42-75); PLATELET COUNT 149 X10'3 (140-440); RED BLOOD COUNT 2.72 X10'6 (4.70-6.10); RED CELL DISTRIBUTION WIDTH 16.2 % (11.5-14.5); WHITE BLOOD COUNT 8.7 X10'3 (4.5-11.0)
[2023-08-20 02:45] LABS: INR 1.1 INR; PROTHROMBIN TIME 11.8 SECONDS (9.0-12.0)
[2023-08-20 02:58] LABS: ALANINE AMINOTRANSFERASE 20 U/L (12-78); ALBUMIN 3.2 G/DL (3.4-5.0); ALBUMIN/GLOBULIN RATIO 1.3 (1.1-1.5); ALKALINE PHOSPHATASE 40 IU/L (46-116); ANION GAP 7 (8-16); ASPARTATE AMINO TRANSFERASE 23 U/L (10-37); BLOOD UREA NITROGEN 16 MG/DL (7-18); BUN/CREATININE RATIO 18.2 (10.0-20.0); CALCIUM 7.8 MG/DL (8.5-10.1); CHLORIDE 101 MMOL/L (99-107); CREATININE 0.88 MG/DL (0.60-1.10); GLUCOSE 104 MG/DL (70-104); MAGNESIUM 1.8 MG/DL (1.5-2.4); PHOSPHORUS 3.3 MG/DL (2.3-4.5); POTASSIUM 3.7 MMOL/L (3.5-5.1); SODIUM 137 MMOL/L (135-145); TOTAL CARBON DIOXIDE 29.5 MMOL/L (24-32); TOTAL PROTEIN 5.6 G/DL (6.4-8.2); eCRCL 77 ML/MIN; eGFR 87 ML/MIN
[2023-08-20] MEDS ORDERED: magnesium 2GM in 50ml NS 50 ML IV PRN (08:40)
[2023-08-20] MEDS ORDERED: magnesium 4gm in 100ml NS 100 ML IV PRN (08:40)
[2023-08-20] MEDS ORDERED: potassium Cl 20mEq/100mL bag 100 ML IV PRN (08:40)
[2023-08-20] MEDS ORDERED: potassium Cl 40MEQ/270ML bag 250 ML IV PRN (08:40)
[2023-08-20] MEDS ORDERED: potassium Cl 40MEQ/1/2NS 520ml 520 ML IV PRN (08:40)
[2023-08-20] MEDS ORDERED: potassium Cl 20 mEq SR tablet PO PRN ×2 (08:40)
[2023-08-20] MEDS ORDERED: potassium CL 10mEq/100ml bag 100 ML IV PRN (08:40)
[2023-08-20 09:17] LABS: INR 1.1 INR; PROTHROMBIN TIME 11.3 SECONDS (9.0-12.0)
[2023-08-20] MEDS: digoxin 125mcg (0.125mg) tablet PO SCH (09:31)
[2023-08-20 10:17] LABS: APTT 23 SECONDS (22-32)
[2023-08-20] MEDS: argatroban in NS 50mg/50ml 50 ML IV SCH (11:30)
[2023-08-20] MEDS: magnesium Cl slow-release 64mg tablet PO SCH (20:08)
[2023-08-20] MEDS: sotalol HCl 40mg (1/2 tablet) PO SCH (20:08)
[2023-08-20] MEDS: warfarin 2.5mg tablet PO SCH (20:39)
[2023-08-21] VITALS (11 sets, daily range): BP systolic 91–106; BP diastolic 63–69; PULSE 69–94; RESP 15–25; TEMP 97.6–98.4; O2SAT 93–99
[2023-08-21 01:48] LABS: BASOPHILS % (AUTO) 0.5 % (0-1); EOSINOPHILS # (AUTO) 0.3 X10'3 (0-0.9); EOSINOPHILS % (AUTO) 3.5 % (0-6); HEMATOCRIT 25.4 % (42.0-52.0); HEMOGLOBIN 8.7 g/dl (14.0-17.9); LYMPHOCYTES # (AUTO) 0.9 X10'3 (1.1-4.8); LYMPHOCYTES % (AUTO) 10.2 % (21-51); MEAN CORPUSCULAR HEMOGLOBIN 31.2 PG (27.0-31.0); MEAN CORPUSCULAR HGB CONC 34.2 g/dL (33.0-36.5); MEAN PLATELET VOLUME 7.9 FL (7.4-10.4); MONOCYTES # (AUTO) 1.4 X10'3 (0-0.9); MONOCYTES % (AUTO) 15.2 % (2-12); NEUTROPHILS # (AUTO) 6.5 X10'3 (1.8-7.7); NEUTROPHILS % (AUTO) 70.6 % (42-75); PLATELET COUNT 202 X10'3 (140-440); RED BLOOD COUNT 2.79 X10'6 (4.70-6.10); RED CELL DISTRIBUTION WIDTH 16.2 % (11.5-14.5); WHITE BLOOD COUNT 9.2 X10'3 (4.5-11.0)
[2023-08-21 01:52] LABS: ALBUMIN 3.1 G/DL (3.4-5.0); ANION GAP 9 (8-16); BLOOD UREA NITROGEN 16 MG/DL (7-18); CALCIUM 7.9 MG/DL (8.5-10.1); CHLORIDE 100 MMOL/L (99-107); GLUCOSE 123 MG/DL (70-104); MAGNESIUM 1.7 MG/DL (1.5-2.4); POTASSIUM 3.7 MMOL/L (3.5-5.1); SODIUM 137 MMOL/L (135-145); TOTAL CARBON DIOXIDE 27.9 MMOL/L (24-32); eCRCL 84 ML/MIN; eGFR > 90 ML/MIN
[2023-08-21 02:09] LABS: PROTHROMBIN TIME 43.7 SECONDS (9.0-12.0)
[2023-08-21 02:15] LABS: INR 4.5 INR
[2023-08-21 06:27] LABS: INR 2.3 INR; PROTHROMBIN TIME 23.2 SECONDS (9.0-12.0)
[2023-08-21] MEDS ORDERED: SOTA80TA73 PO (08:50)
[2023-08-21] MEDS ORDERED: LAN0.125T PO (08:50)
[2023-08-21] MEDS ORDERED: ASPI81TA53 PO (08:50)
[2023-08-21] MEDS ORDERED: HYDR-3972 PO (08:50)
[2023-08-21] MEDS: lactobacillus rhamnosus 10,000 MMU CELLS/CAPSULE PO SCH (09:35)
[2023-08-21] MEDS: magnesium citrate 296ml oral solution PO ONE (09:35)
[2023-08-21] MEDS: HALLS - SOOTHE MENTHOL 1.8 MG cough drop LOZENGE MM PRN (09:36)
[2023-08-21] MEDS ORDERED: ondansetron 4mg rapidly disintigrating tab PO PRN (14:35)
[2023-08-22 06:00] VITALS: BP 88/58; PULSE 71; RESP 18; TEMP 98.9; O2SAT 95
[2023-08-22 08:00] VITALS: RESP 18; O2SAT 95
[2023-08-22 08:06] VITALS: PULSE 99; RESP 16; O2SAT 99
[2023-08-22 08:28] LABS: BASOPHILS % (AUTO) 0.4 % (0-1); EOSINOPHILS # (AUTO) 0.3 X10'3 (0-0.9); EOSINOPHILS % (AUTO) 4.5 % (0-6); HEMATOCRIT 25.2 % (42.0-52.0); HEMOGLOBIN 8.6 g/dl (14.0-17.9); LYMPHOCYTES # (AUTO) 0.8 X10'3 (1.1-4.8); LYMPHOCYTES % (AUTO) 11.4 % (21-51); MEAN CORPUSCULAR HGB CONC 34.1 g/dL (33.0-36.5); MEAN CORPUSCULAR VOLUME 90.8 FL (78-98); MEAN PLATELET VOLUME 7.6 FL (7.4-10.4); MONOCYTES # (AUTO) 0.9 X10'3 (0-0.9); MONOCYTES % (AUTO) 13.8 % (2-12); NEUTROPHILS # (AUTO) 4.7 X10'3 (1.8-7.7); NEUTROPHILS % (AUTO) 69.9 % (42-75); PLATELET COUNT 255 X10'3 (140-440); RED BLOOD COUNT 2.78 X10'6 (4.70-6.10); RED CELL DISTRIBUTION WIDTH 15.9 % (11.5-14.5); WHITE BLOOD COUNT 6.7 X10'3 (4.5-11.0)
[2023-08-22 08:37] LABS: INR 1.1 INR; PROTHROMBIN TIME 11.7 SECONDS (9.0-12.0)
[2023-08-22 08:49] LABS: ALANINE AMINOTRANSFERASE 20 U/L (12-78); ALBUMIN 2.9 G/DL (3.4-5.0); ALBUMIN/GLOBULIN RATIO 1.1 (1.1-1.5); ALKALINE PHOSPHATASE 42 IU/L (46-116); ANION GAP 7 (8-16); ASPARTATE AMINO TRANSFERASE 23 U/L (10-37); BILIRUBIN,TOTAL 2.5 MG/DL (0.1-1.0); BLOOD UREA NITROGEN 14 MG/DL (7-18); BUN/CREATININE RATIO 17.9 (10.0-20.0); CHLORIDE 101 MMOL/L (99-107); CREATININE 0.78 MG/DL (0.60-1.10); GLUCOSE 95 MG/DL (70-104); MAGNESIUM 1.9 MG/DL (1.5-2.4); POTASSIUM 3.7 MMOL/L (3.5-5.1); SODIUM 136 MMOL/L (135-145); TOTAL CARBON DIOXIDE 27.6 MMOL/L (24-32); TOTAL PROTEIN 5.5 G/DL (6.4-8.2); eCRCL 86 ML/MIN; eGFR > 90 ML/MIN
[2023-08-22 11:00] VITALS: BP 96/56; PULSE 90; RESP 15; TEMP 98.8; O2SAT 98
[2023-08-22] MEDS ORDERED: FURO40TA4 PO (14:40)
[2023-08-22 15:00] VITALS: BP 108/67; PULSE 96; RESP 18; TEMP 98; O2SAT 100
[2023-08-22] MEDS ORDERED: apixaban 5mg tablet PO SCH (20:00)
== END 2023-08-22 16:38 | disposition home health service (06) | DRG 219 ==
LOC: PAS IN 05:49 → CICU 2S 12:30 → PCU 3S 08-20 17:26
PROVIDERS: ADMIT Thoracic Surgery (Cardiothoracic Vascular Surgery); ATTEND Thoracic Surgery (Cardiothoracic Vascular Surgery)
PROC: 027 Heart and Great Vessels, Dilation (ICD-10-PCS; 2023-08-14)
PROC: 025S0ZZ Destruction of Right Pulmonary Vein, Open Approach (ICD-10-PCS; 2023-08-14)
PROC: 02L70ZK Occlusion of Left Atrial Appendage, Open Approach (ICD-10-PCS; 2023-08-14)
PROC: 5A1221Z Performance of Cardiac Output, Continuous (ICD-10-PCS; 2023-08-14)
PROC: B24BZZ4 Ultrasonography of Heart with Aorta, Transesophageal (ICD-10-PCS; 2023-08-14)
PROC: 30233R1 Transfusion of Nonautologous Platelets into Peripheral Vein, Percutaneous Approach (ICD-10-PCS; 2023-08-14)
PROC: 30233N1 Transfusion of Nonautologous Red Blood Cells into Peripheral Vein, Percutaneous Approach (ICD-10-PCS; 2023-08-14)
PROC: 02RG08Z Replacement of Mitral Valve with Zooplastic Tissue, Open Approach (ICD-10-PCS; principal; 2023-08-14 08:14)
DX: I34.0 Nonrheumatic mitral (valve) insufficiency (principal); A41.9 Sepsis, unspecified organism; C95.90 Leukemia, unspecified not having achieved remission; I42.1 Obstructive hypertrophic cardiomyopathy; I48.92 Unspecified atrial flutter; D62 Acute posthemorrhagic anemia; I48.19 Other persistent atrial fibrillation; I95.9 Hypotension, unspecified; I50.9 Heart failure, unspecified; D69.6 Thrombocytopenia, unspecified; I11.0 Hypertensive heart disease with heart failure; Z91.018 Allergy to other foods
CPT/HCPCS: 93312; 93325; Z7506; Z7508; 36415; 36430; 36600; 71045; 71046; 76376; 80048; 80053; 80076; 81003; 82330; 82435; 82803; 82947; 82948; 83036; 83735; 84100; 84132; 84295; 84439; 84443; 85007; 85018; 85025; 85027; 85347; 85610; 85730; 86885; 86900; 86901; 86920; 87081; 93005; 93880; 93970; 94002; 94640; 94760; 97116; 97530; A4615; A4618; A6213; A6253; A6258; A6449; A7000; A7048; C1751; G0378; J0171; J0282; J0690; J0883; J1100; J1160; J1250; J1644; J1650; J1815; J1940; J2150; J2250; J2270; J2370; J2405; J2704; J2720; J2765; J3370; J3475; J3480; J3490; J7030; J7040; J7050; J7060; J7120; P9016; P9035; P9045; P9047